=== PATIENT | female | born 1950 | race Caucasian/White ===

== ENCOUNTER 2020-02-19 13:28 | Emergency (ER) | payer MEDICARE, BC ==
[2020-02-19] MEDS ORDERED: DIPH/PERTUSS(ACELL)/TETANUS VAC/PF 0.5 ML SYR (>=10YO) IM ONE ×2 (13:57→17:53)
--- NOTE | 2020-02-19 13:57 | ER Document Report ---
ED Medical Screen (RME) - General Chief Complaint: Laceration Stated Complaint: LEG LACERATION Time Seen by Provider: 02/19/20 13:55 Mode of Arrival: Wheelchair Information source: Patient Notes: 69-year-old female presented to ED with a 5 or 6 cm laceration to the medial left leg. It is through all layers. Bleeding is under control as her neighbor is [employer] and has put pressure to it. She states she was trying to get from the doctor the boat when a piece of metal on the boat sliced open her leg. She is alert oriented respirations regular nonlabored speaking in full sentences. I have spoken to the charge nurse about this injury that she will need a room to be sutured up. She will also need a tetanus immunization. I have greeted and performed a rapid initial assessment of this patient. A comprehensive ED assessment and evaluation of the patient, analysis of test results and completion of medical decision making process will be conducted by an additional ED providers. - Related Data Allergies/Adverse Reactions: No Known Allergies Allergy (Verified 02/19/20 13:44) Physical Exam - Vital signs Vitals: Temp Pulse Resp BP Pulse Ox 98.0 F 73 18 109/70 100 02/19/20 13:43 02/19/20 13:43 02/19/20 13:43 02/19/20 13:43 02/19/20 13:43 Course - Vital Signs Vital signs: Temp Pulse Resp BP Pulse Ox 98.0 F 73 18 109/70 100 02/19/20 13:43 02/19/20 13:43 02/19/20 13:43 02/19/20 13:43 02/19/20 13:43
--- NOTE | 2020-02-19 14:48 | RADIOLOGY REPORT (SQ) ---
EXAM DESCRIPTION: TIBIA FIBULA LEFT IMAGES COMPLETED DATE/TIME: 02/19/2020 2:25 pm REASON FOR STUDY: Laceration on metal on a boat dock COMPARISON: None. NUMBER OF VIEWS: Two views. TECHNIQUE: Two radiographic images acquired of the left tibia and fibula to include the knee and ank le in at least one projection. LIMITATIONS: None. FINDINGS: MINERALIZATION: Normal. BONES: No acute fracture or dislocation. No worrisome bone lesions. No significant osteophytes. SOFT TISSUES: Soft tissue defect over the lateral aspect of the calf. OTHER: No other significant finding. IMPRESSION: Soft tissue defect over the lateral aspect of the calf without underlying fracture. TECHNICAL DOCUMENTATION: JOB ID: [id number] 2010 [employer]- All Rights Reserved Reading location - IP/workstation name: [email or web address]
[2020-02-19] MEDS ORDERED: LIDOCAINE 1% INJ-PF (10 MG/ML) 30 ML SDV INJ ONE (19:58)
[2020-02-19] MEDS ORDERED: LIDOCAINE 1% INJ (10 MG/ML) 10 ML MDV INJ ONE (20:00)
--- NOTE | 2020-02-19 22:14 | ER Document Report ---
ED Wound - General Chief Complaint: Laceration Stated Complaint: LEG LACERATION Time Seen by Provider: 02/19/20 13:55 Mode of Arrival: Ambulatory Information source: Patient Notes: Patient is a 69-year-old female comes emergency room with a laceration to her left lower lateral extremity. Patient states she was attempting to push the boat away from the dog and jumped onto the boat when her left leg swelling crossed and caught a metal piece associated with the anchor area. She has a laceration that is on the distal portion of the left lower extremity. It is approximately 10 cm long by 2 cm wide it is widest point. Patient denies any other injuries and has been able to ambulate with the wound like it is. She has a friend that does boating with her that is a nurse practitioner that examined the area told her she needed to come to the emergency room but she thoroughly flushed it out before sending her to the ER. Patient denies any other medical problems with exception of hypothyroidism. She does not smoke. - Related Data Allergies/Adverse Reactions: No Known Allergies Allergy (Verified 02/19/20 13:44) Past Medical History - General Information source: Patient - Social History Smoking Status: Never Smoker Cigarette use (# per day): No Chew tobacco use (# tins/day): No Smoking Education Provided: No Frequency of alcohol use: Occasional Drug Abuse: None Lives with: Family Family History: Reviewed & Not Pertinent Patient has homicidal ideation: No Review of Systems - Review of Systems Constitutional: No symptoms reported EENT: No symptoms reported Cardiovascular: No symptoms reported Respiratory: No symptoms reported Gastrointestinal: No symptoms reported Genitourinary: No symptoms reported Female Genitourinary: No symptoms reported Musculoskeletal: No symptoms reported Skin: See HPI, Other - Laceration Hematologic/Lymphatic: No symptoms reported Neurological/Psychological: No symptoms reported -: Yes All other systems reviewed and negative Physical Exam - Vital signs Vitals: Temp Pulse Resp BP Pulse Ox 98.0 F 73 18 109/70 100 02/19/20 13:43 02/19/20 13:43 02/19/20 13:43 02/19/20 13:43 02/19/20 13:43 Interpretation: Normal - Notes Notes: PHYSICAL EXAMINATION: GENERAL: Well-appearing, well-nourished and in no acute distress. HEAD: Atraumatic, normocephalic. NECK: Normal range of motion, supple without lymphadenopathy LUNGS: Breath sounds clear to auscultation bilaterally and equal. No wheezes rales or rhonchi. HEART: Regular rate and rhythm without murmurs Musculoskeletal: Examination patient's her concern is her left lower extremity lateral side of the distal leg. Patient has a 10 cm laceration that is somewhat frayed but nearly linear. It is 10 cm long by a centimeter half to 2 cm at its widest gapping point. Visualization under bloodless field does not show any tendon or ligament damage. Patient has good flexion-extension of the foot as well as rotation at the ankle. She is good cap refill in nailbeds of the toes of the left foot. Patient displays good dorsalis pedal pulse. The wound itself appears very clean no sign of foreign bodies. NEUROLOGICAL: Cranial nerves grossly intact. Normal speech, normal gait. Normal sensory, motor exams PSYCH: Normal mood, normal affect. SKIN: See musculoskeletal above for full detail Course - Re-evaluation Re-evalutation: 02/19/20 22:20 Patient tolerated procedure without any complications. She has been explained to in depth that to overstress the area could pull the sutures out. I have also asked her not to get it wet or going to the [facility] stream bathtub whirlpool until after the sutures have been removed. - Vital Signs Vital signs: Temp Pulse Resp BP Pulse Ox 98.0 F 73 18 109/70 100 02/19/20 13:43 02/19/20 13:43 02/19/20 13:43 02/19/20 13:43 02/19/20 13:43 Procedures - Laceration/Wound Repair Left Lateral Leg Time completed: 22:17 Wound length (cm): 10 Wound's Depth, Shape: Into muscle, Linear, Stellate - You are welcome Laceration pre-procedure: Sterile PPE donned, Chloraprep applied, Sterile drapes applied Anesthetic type: 1% Lidocaine Volume Anesthetic (mLs): 15 Wound explored: Clean Irrigated w/ Saline (mLs): 1,000 Wound Debrided: Moderate Wound Repaired With: Sutures Suture Size/Type: 3:0, Prolene Number of Sutures: 12 Layer Closure?: Yes Deep Layer Suture Size/Type: 3:0, Other - Vicryl Number Deep Layer Sutures: 3 Post-procedure wound care: Sterile dressing applied Post-procedure NV exam normal: Yes Complications: No Discharge - Discharge Clinical Impression: Laceration of left lower leg Qualifiers: Encounter type: initial encounter Qualified Code(s): S81.812A - Laceration without foreign body, left lower leg, initial encounter Condition: Stable Disposition: HOME, SELF-CARE Instructions: Antibiotic Ointment Protection ([facility]), Laceration Care ([facility]), Prophylactic Antibiotic ([facility]), Soap Cleansing ([facility]), Tetanus Immunization Given ([facility]) Additional Instructions: As we discussed home and keep the areas clean and dry as possible for 48 hours. You may take a shower and let the water run over top of it but let air dry very well after tomorrow. Then reapply a antibiotic and dressing to it. Also after a couple of days you may start using Mcderma you can ask the pharmacist we can find this it will help the scar to heal less noticeable. Monitor the area very closely if you see signs of increasing redness or a discharge return to ER for reevaluation. Take all the antibiotics until completion. I have also written you for a Diflucan pill to stop you from getting a yeast infection vaginally. Also as we discussed no matter how many sutures I put in if you overstress this local area that is under tension anyway you may pull the sutures out. This is not a bad thing but it make this scar look a little worse over time but it will heal on its own. If you have any concerns all return to ER for reevaluation. Also return to ER in 10 to 12 days for suture removal or as stated sooner if it does not appear to be healing appropriately. I would stay out of ocean, mccabe, streams, pools, whirlpools, baths until the sutures have been removed totally and had time to heal for 24 hours. Prescriptions: Fluconazole [Diflucan] 150 mg PO ONCE PRN #1 tablet PRN Reason: Doxycycline Hyclate 100 mg PO BID #20 tablet.
[2020-02-19 22:49] VITALS: BP 116/77
== END 2020-02-19 22:36 | disposition home or self-care (01) ==
LOC: ER 13:28
DX: S81.812A Laceration without foreign body, left lower leg, initial encounter (principal); W26.9XXA Contact with unspecified sharp object(s), initial encounter; Y92.814 Boat as the place of occurrence of the external cause; Z23 Encounter for immunization
CPT/HCPCS: 99283; 90471; 73590; 90715; 12034; J3490